=== PATIENT | male | born 1980 | race Caucasian/White ===

== ENCOUNTER 2017-01-02 22:28 | Emergency (ER) | payer SELFPAY ==
[2017-01-02 22:33] VITALS: BMI 35.4
[2017-01-02 23:11] VITALS: BP 146/87
[2017-01-02] MEDS ORDERED: DILAUDID INJ IM ONE (23:36)
[2017-01-02] MEDS ORDERED: DILAUDID INJ ONE (23:36)
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
--- NOTE | 2017-01-03 00:24 | RAD ---
EXAM: Right Lower Extremity X-ray INDICATION: Pain COMPARISION: No comparison TECHNIQUE: PA and Lat, 2 view FINDINGS: No acute fracture or dislocation. The joint spaces are preserved. The soft tissues are normal. No ra diopaque foreign body. IMPRESSION: Normal right lower extremity x-ray examination Reported By:
--- NOTE | 2017-01-03 00:24 | RAD ---
ForEXAM: Right ankle x-ray INDICATION: Pain COMPARISION: No priors for comparison TECHNIQUE: AP, lateral, and oblique, three views FINDINGS: No acute fracture or dislocation. There is no evidence of an intraosseous lesion. The joint spaces a re preserved. No joint effusion is identified. The surrounding soft tissues appear unremarkable. The re is no evidence of a radiopaque foreign body. IMPRESSION: Normal right ankle x-ray exam Reported By:
== END 2017-01-03 01:03 | disposition home or self-care (01) ==
LOC: ER 22:56
DX: S90.01XA Contusion of right ankle, initial encounter (principal); V86.59XA Driver of other special all-terrain or other off-road motor vehicle injured in nontraffic accident, initial encounter; Y92.9 Unspecified place or not applicable
CPT/HCPCS: 29515; 73590; 73610; 96372; 99283